=== PATIENT | female | born 1985 | race American Indian/Alaskan Native ===

== ENCOUNTER 2021-10-25 13:49 | Emergency (ER) | payer MEDICARE ==
[2021-10-25 15:06] VITALS: BP 161/98
--- NOTE | 2021-10-25 15:19 | Emergency Department Report ---
ED General Adult HPI - General Chief complaint: Medical Clearance Stated complaint: MEDICAL CLEARANCE Time Seen by Provider: 10/25/21 15:01 Source: patient Mode of arrival: Ambulatory Limitations: No Limitations - History of Present Illness Initial comments: The patient is a 36-year-old female who reports that she is not , reports that she has not delivered her given in the past 6 weeks, who was referred to the emergency room by an outside facility for medical clearance after unintentional marijuana smoke exposure. The patient denies all complaints at this time. She is not homicidal or suicidal. She is asking to be discharged. On review of systems, she does have chronic right lower extremity pain from an accident a few years ago, but the patient indicates she is not present in the emergency room for evaluation of this -: This afternoon Improves with: none Worsens with: none Associated Symptoms: denies other symptoms - Related Data Allergies Allergy/AdvReac Type Severity Reaction Status Date / Time erythromycin base Allergy Anaphylaxis Verified 10/25/21 14:03 [From Erythrocin] fluconazole [From Diflucan] Allergy Rash Verified 10/25/21 14:04 haloperidol [From Haldol] Allergy Rash Verified 10/25/21 14:04 ziprasidone [From Geodon] Allergy Rash Verified 10/25/21 14:04 ED Review of Systems ROS: Stated complaint: MEDICAL CLEARANCE Other details as noted in HPI Comment: All other systems reviewed and negative Musculoskeletal: arthralgia, other (Chronic right lower extremity pain and arthritis) ED Past Medical Hx - Past Medical History Hx Arthritis: No (Diclofenac) Hx Seizures: Yes (Keppra, Trileptal) Hx Psychiatric Treatment: Yes (takes seroquel, celexa) Additional medical history: neuropathy takes Gabapentin - Surgical History Past Surgical History?: Yes Additional Surgical History: ectopic , carpal tunnel - Social History Smoking Status: Current Some Day Smoker ED Physical Exam - General Limitations: No Limitations General appearance: alert, in no apparent distress, obese - Head Head exam: Present: atraumatic, normocephalic - Eye Eye exam: Present: normal appearance, EOMI. Absent: nystagmus - ENT ENT exam: Present: normal exam, normal orophraynx, mucous membranes moist, normal external ear exam - Neck Neck exam: Present: normal inspection, full ROM. Absent: tenderness, meningismus - Respiratory Respiratory exam: Present: normal lung sounds bilaterally. Absent: respiratory distress, wheezes, rales, rhonchi, stridor, decreased breath sounds - Cardiovascular Cardiovascular Exam: Present: regular rate, normal rhythm, normal heart sounds. Absent: bradycardia, tachycardia, irregular rhythm, systolic murmur, diastolic murmur, rubs, gallop - GI/Abdominal GI/Abdominal exam: Present: soft. Absent: distended, tenderness, guarding, rebound, rigid, pulsatile mass - Extremities Exam Extremities exam: Present: normal inspection, full ROM, other (2+ pulses noted in the bilateral upper extremities. There is no long bony tenderness. The pelvis is stable. The muscular compartments are soft). Absent: pedal edema, calf tenderness - Back Exam Back exam: Present: normal inspection. Absent: tenderness, CVA tenderness (R), CVA tenderness (L), paraspinal tenderness, vertebral tenderness - Neurological Exam Neurological exam: Present: alert, oriented X3, normal gait, other (No facial droop. Tongue midline. Extraocular movements intact bilaterally. Facial sensation intact to light touch in V1, V2, V3 distribution bilaterally. 5 and a 5 strength in 4 extremities. Sensation intact to light touch in 4 extr emities.). Absent: motor sensory deficit - Psychiatric Psychiatric exam: Present: normal affect, normal mood. Absent: homicidal ideation, suicidal ideation - Skin Skin exam: Present: warm, dry, intact, normal color. Absent: rash ED Course Vital Signs 10/25/21 10/25/21 10/25/21 14:02 14:34 14:37 Temperature 98.9 F Pulse Rate 98 H Respiratory 16 14 13 Rate Blood Pressure 156/84 O2 Sat by Pulse 100 100 Oximetry O2 Sat by Pulse Oximetry [ Digit-Finger] 10/25/21 10/25/21 10/25/21 14:45 15:01 15:27 Temperature Pulse Rate 95 H Respiratory 14 11 L Rate Blood Pressure 152/90 161/98 O2 Sat by Pulse 99 100 Oximetry O2 Sat by Pulse 99 Oximetry [ Digit-Finger] 10/25/21 15:48 Temperature 98.9 F Pulse Rate 98 H Respiratory 16 Rate Blood Pressure O2 Sat by Pulse 100 Oximetry O2 Sat by Pulse Oximetry [ Digit-Finger] - Pulse Oximetry Interpretation Digit-Finger Initial Pulse Oximetry Readin O2 Sat by Pulse Oximetry: 99 Actions Taken: none ED Medical Decision Making - Lab Data Vital Signs 10/25/21 10/25/21 10/25/21 14:02 14:34 14:37 Temperature 98.9 F Pulse Rate 98 H Respiratory 16 14 13 Rate Blood Pressure 156/84 O2 Sat by Pulse 100 100 Oximetry 10/25/21 10/25/21 14:45 15:01 Temperature Pulse Rate 95 H Respiratory 14 11 L Rate Blood Pressure 152/90 161/98 O2 Sat by Pulse 99 100 Oximetry - Medical Decision Making Differential diagnosis, include but not limited to: Encounter for medical screening exam, encounter for behavioral health screening exam Assessment and plan: 36-year-old female, who is clinically sober with a GCS of 15, presenting to the ER today with request for medical clearance. She was had an outside program, and reports secondhand exposure to marijuana. She is not homicidal or suicidal, she is not having hallucinations and she exhibits decision-making capacity. She does not meet criteria for 1013 hold or involuntary hold or confinement. She denies overdose. Review of systems is essentially negative for all findings, except chronic right lower extremity pain secondary to accident, but she is not interested in pain medication for this at this time. She reports that she has elevated blood pressure because she is annoyed and agitated that she had to come to the emergency room for clearance. Nevertheless, the patient does not appear to have an emergent medical or psychiatric condition at this time, she may be discharged to follow-up as an outpatient for her elevated blood pressure and body mass index of 44 Critical care attestation.: If time is entered above; I have spent that time in minutes in the direct care of this critically ill patient, excluding procedure time. ED Disposition Clinical Impression: Encounter for medical screening examination, Encounter for behavioral health screening, Elevated blood pressure reading, Body mass index 40.0-44.9, adult Disposition: 01 HOME / SELF CARE / HOMELESS Is pt being admited?: No Does the pt Need Aspirin: No Condition: Good Additional Instructions: The patient was not found to have an emergent medical or psychiatric condition at this time which would preclude discharge from the emergency room. The patient may return to her program, and continue current outpatient therapy and medications. Recommend follow-up with her primary care doctor within the next 4 to 6 weeks for elevated blood pressure, and body mass index of 44.1. The patient may take [id number] Tylenol or ibuprofen as needed for physical pain. Please return to the emergency room right away with new pain, worsened pain, migration of pain, projectile vomiting, change in mental status, confusion, inability tolerate liquid feeds, new, worsened or different symptoms not present on the initial emergency room evaluation Referrals: [facility] [Provider Group] - 3-5 Days [facility] [Outside] - 3-5 Days [facility] [Outside] - 3-5 Days
== END 2021-10-25 15:48 | disposition home or self-care (01) ==
LOC: ED 13:49
DX: Z13.30 Encounter for screening examination for mental health and behavioral disorders, unspecified (principal); M79.604 Pain in right leg; Z68.41 Body mass index [BMI] 40.0-44.9, adult; R03.0 Elevated blood-pressure reading, without diagnosis of hypertension; M19.90 Unspecified osteoarthritis, unspecified site; G40.909 Epilepsy, unspecified, not intractable, without status epilepticus; F17.200 Nicotine dependence, unspecified, uncomplicated; Z88.6 Allergy status to analgesic agent; Z88.1 Allergy status to other antibiotic agents; Z91.09 Other allergy status, other than to drugs and biological substances
CPT/HCPCS: 99283

== ENCOUNTER 2022-04-25 16:53 | Emergency (ER) | payer MEDICARE ==
[2022-04-26] MEDS ORDERED: KETOROLAC 10 MG TAB PO ONE (08:23)
[2022-04-26] MEDS ORDERED: ACETAMINOPHEN W/CODEINE 300-30 MG TAB PO ONE (08:23)
--- NOTE | 2022-04-26 08:52 | Emergency Department Report ---
ED General Adult HPI - General Stated complaint: SEIZURE/DIZZINESS Time Seen by Provider: 04/26/22 08:15 - History of Present Illness Initial comments: 36-year-old black female with a past medical history of hypertension and seizure disorder presents to the emergency department for evaluation of generalized body aches. She states that she ran out of her Keppra 5 days ago, had several seizures on Tuesday and Tuesday, then restarted her Keppra on Tuesday evening. She states that she has not had any seizures since Tuesday morning but has had some generalized body aches since then secondary to falling down. She denies head injury, neck pain, or headache. MD Complaint: Body aches -: Gradual Radiation: non-radiation Severity scale (0 -10): 7 Quality: aching Consistency: constant Worsens with: movement Associated Symptoms: denies: confusion, chest pain, cough, diaphoresis, fever/chills, headaches, loss of appetite, malaise, nausea/vomiting, rash, seizure, shortness of breath, syncope, weakness Treatments Prior to Arrival: none - Related Data Allergies Allergy/AdvReac Type Severity Reaction Status Date / Time erythromycin base Allergy Anaphylaxis Verified 10/25/21 14:03 [From Erythrocin] fluconazole [From Diflucan] Allergy Rash Verified 10/25/21 14:04 haloperidol [From Haldol] Allergy Rash Verified 10/25/21 14:04 ziprasidone [From Geodon] Allergy Rash Verified 10/25/21 14:04 ED Review of Systems ROS: Stated complaint: SEIZURE/DIZZINESS Other details as noted in HPI Comment: All other systems reviewed and negative Constitutional: denies: chills, fever Eyes: denies: vision change ENT: denies: congestion Respiratory: denies: shortness of breath, SOB with exertion, wheezing Cardiovascular: denies: chest pain, palpitations Gastrointestinal: denies: abdominal pain, nausea, vomiting Genitourinary: denies: urgency, dysuria, frequency, hematuria, discharge Musculoskeletal: back pain, myalgia Skin: denies: rash, lesions Neurological: denies: headache, weakness ED Past Medical Hx - Past Medical History Hx Arthritis: No (Diclofenac) Hx Seizures: Yes (Keppra, Trileptal) Hx Psychiatric Treatment: Yes (takes seroquel, celexa) Additional medical history: neuropathy takes Gabapentin - Surgical History Additional Surgical History: ectopic , carpal tunnel - Social History Smoking Status: Current Some Day Smoker ED Physical Exam - General General appearance: alert, in no apparent distress - Head Head exam: Present: atraumatic, normocephalic - Eye Eye exam: Present: normal appearance. Absent: conjunctival injection - ENT ENT exam: Present: normal exam - Neck Neck exam: Present: normal inspection, full ROM. Absent: tenderness - Respiratory Respiratory exam: Present: normal lung sounds bilaterally. Absent: respiratory distress, wheezes, rales, rhonchi, stridor, chest wall tenderness - Cardiovascular Cardiovascular Exam: Present: regular rate - GI/Abdominal GI/Abdominal exam: Present: soft, normal bowel sounds. Absent: distended, tenderness, guarding, rebound, rigid - Extremities Exam Extremities exam: Present: normal inspection, normal capillary refill. Absent: calf tenderness - Back Exam Back exam: Present: normal inspection. Absent: CVA tenderness (R), CVA tenderness (L), vertebral tenderness - Neurological Exam Neurological exam: Present: alert, oriented X3, normal gait, reflexes normal. Absent: motor sensory deficit - Psychiatric Psychiatric exam: Present: normal affect, normal mood - Skin Skin exam: Present: warm, dry, intact, normal color ED Course Vital Signs 04/26/22 08:50 Temperature 96.8 F L Pulse Rate 84 Respiratory 16 Rate Blood Pressure 139/78 [Left] O2 Sat by Pulse 100 Oximetry ED Medical Decision Making - Medical Decision Making 36-year-old black female with a past medical history of hypertension and seizure disorder presents to the emergency department for evaluation of generalized body aches. She states that she ran out of her Keppra 5 days ago, had several seizures on Tuesday and Tuesday, then restarted her Keppra on Tuesday evening. She states that she has not had any seizures since Tuesday morning but has had some generalized body aches since then secondary to falling down. She denies head injury, neck pain, or headache. Physical exam unremarkable. No active seizures noted. Patient requesting a note to be out of work for 2 days. Patient discharged home to continue Keflex, be out of work 2 days, and follow-up with her neurologist or primary care provider. She is advised to return to the emergency department as needed. She verbalizes understanding of and agreement with plan of care. Critical care attestation.: If time is entered above; I have spent that time in minutes in the direct care of this critically ill patient, excluding procedure time. ED Disposition Clinical Impression: Myalgia Disposition: 01 HOME / SELF CARE / HOMELESS Is pt being admited?: No Does the pt Need Aspirin: No Condition: Stable Instructions: Musculoskeletal Pain Additional Instructions: Follow-up with your primary care provider for further evaluation and management. Return to the emergency department as needed. Referrals: BROOKE CONNELL MD [Staff Physician] - 3-5 Days PHAN AVILA MD [Staff Physician] - 3-5 Days ESDRAS MOFFETT MD [Staff Physician] - 3-5 Days Forms: Work/School Release Form(ED) Time of Disposition: 08:52
[2022-04-26 09:00] VITALS: BP 139/78
== END 2022-04-26 09:16 | disposition home or self-care (01) ==
LOC: ED 16:53
DX: M79.10 Myalgia, unspecified site (principal); Z91.09 Other allergy status, other than to drugs and biological substances
CPT/HCPCS: 99282

== ENCOUNTER 2022-04-25 23:11 | Emergency (ER) | payer MEDICARE ==
[2022-04-26 02:20] VITALS: BP 150/99
== END 2022-04-26 19:00 | disposition left against medical advice (07) ==
LOC: ED 23:11
DX: R56.9 Unspecified convulsions (principal); Z53.21 Procedure and treatment not carried out due to patient leaving prior to being seen by health care provider

== ENCOUNTER 2022-05-01 02:03 | Emergency (ER) | payer MEDICARE ==
[2022-05-01] MEDS ORDERED: SODIUM CHLORIDE 0.9% 1000 ML 1,000 ML IV ONE ×2 (09:22→15:52)
[2022-05-01 13:01] LABS: Color,Urine Yellow (Yellow)
[2022-05-01 13:07] LABS: Bacteria,Urine 1+ /HPF (Negative); Mucus,Urine FEW /HPF
[2022-05-01 13:14] LABS: Amphetamine Screen,Urine Negative; Cannabinoid Screen,Urine Negative; Methadone Screen,Urine Negative; Opiate Screen,Urine Negative
[2022-05-01 13:25] LABS: HCG Qualitative,Urine Negative (Negative)
[2022-05-01 13:38] LABS: Benzodiazepines Screen,Urine Positive; Cocaine Screen,Urine Positive
[2022-05-01 14:28] LABS: Hematocrit 39.9 % (30.3-42.9); Hemoglobin 13.2 gm/dl (10.1-14.3); Mean Corpuscular HGB Conc 33 % (30-34); Mean Corpuscular Volume 79 fl (79-97); Platelet Count 188 K/mm3 (140-440); Red Blood Count 5.06 M/mm3 (3.65-5.03)
[2022-05-01 14:39] LABS: INR 0.99 (0.87-1.13)
--- NOTE | 2022-05-01 14:45 | Emergency Department Report ---
ED General Adult HPI - General Chief complaint: Pain General Stated complaint: KIDNEY SHUTTING DOWN Source: patient Mode of arrival: Ambulatory Limitations: No Limitations - History of Present Illness Initial comments: 36-year-old female presents to the ED with complaint of "my body feel cramp all over". Patient states that she was recently discharged from [facility] x1 day ago for overdose. She states she took 180 metformin tablet. Patient states that she has been discharge she cannot get rid of this feeling she have all over her body. Patient denies any suicidal homicidal ideation. Patient is alert and oriented x3. No acute distress noted. No ill appearance noted. - Related Data Allergies Allergy/AdvReac Type Severity Reaction Status Date / Time erythromycin base Allergy Anaphylaxis Verified 10/25/21 14:03 [From Erythrocin] fluconazole [From Diflucan] Allergy Rash Verified 10/25/21 14:04 haloperidol [From Haldol] Allergy Rash Verified 10/25/21 14:04 ziprasidone [From Geodon] Allergy Rash Verified 10/25/21 14:04 ED Review of Systems ROS: Stated complaint: KIDNEY SHUTTING DOWN Other details as noted in HPI Constitutional: denies: chills, fever Eyes: denies: eye pain, eye discharge, vision change ENT: denies: ear pain, throat pain Respiratory: denies: cough, shortness of breath, wheezing Cardiovascular: denies: chest pain, palpitations Endocrine: no symptoms reported Gastrointestinal: denies: abdominal pain, nausea, diarrhea Genitourinary: denies: urgency, dysuria, discharge Musculoskeletal: denies: back pain, joint swelling, arthralgia Skin: denies: rash, lesions Neurological: denies: headache, weakness, paresthesias Psychiatric: denies: anxiety, depression Hematological/Lymphatic: denies: easy bleeding, easy bruising ED Past Medical Hx - Past Medical History Previous Medical History?: Yes Hx Diabetes: Yes (DMII) Hx Arthritis: No (Diclofenac) Hx Seizures: Yes (Keppra, Trileptal) Hx Psychiatric Treatment: Yes (MDD, BIPOLAR, SCHIZOPHRENIA) Hx Asthma: Yes Additional medical history: neuropathy takes Gabapentin - Surgical History Past Surgical History?: Yes Additional Surgical History: ectopic , carpal tunnel - Social History Smoking Status: Unknown if ever smoked Substance Use Type: None ED Physical Exam - General Limitations: No Limitations General appearance: alert, in no apparent distress - Head Head exam: Present: atraumatic, normocephalic - Eye Eye exam: Present: normal appearance - ENT ENT exam: Present: mucous membranes moist - Neck Neck exam: Present: normal inspection - Respiratory Respiratory exam: Present: normal lung sounds bilaterally. Absent: respiratory distress - Cardiovascular Cardiovascular Exam: Present: regular rate, normal rhythm. Absent: systolic murmur, diastolic murmur, rubs, gallop - GI/Abdominal GI/Abdominal exam: Present: soft, normal bowel sounds - Extremities Exam Extremities exam: Present: normal inspection - Back Exam Back exam: Present: normal inspection - Neurological Exam Neurological exam: Present: alert, oriented X3 - Psychiatric Psychiatric exam: Present: normal affect, normal mood - Skin Skin exam: Present: warm, dry, intact, normal color. Absent: rash ED Course Vital Signs 05/01/22 05/01/22 04:29 14:52 Temperature 98.1 F 98.8 F Pulse Rate 107 H 96 H Respiratory 18 18 Rate Blood Pressure 133/96 Blood Pressure 161/84 [Right] O2 Sat by Pulse 100 100 Oximetry ED Medical Decision Making - Lab Data Result diagrams: 05/01/22 13:54 05/01/22 13:53 - Medical Decision Making 36-year-old female presents to the ED with complaint of "my body feel cramp all over". Patient states that she was recently discharged from [facility] x1 day ago for overdose. She states she took 180 metformin tablet. Patient states that she has been discharge she cannot get rid of this feeling she have all over her body. Patient denies any suicidal homicidal ideation. Patient is alert and oriented x3. No acute distress noted. No ill appearance noted. Physical examination patient start crying . But would not say why she is crying. Physical examination unremarkable. After talking to the mental health worker patient explain that she is between housing as need to come to hospital . States that she drank a drink . Patient urine drug screen showed b enzos and cocaine use. Patient denies use. Patient has a history of schizophrenia and bipolar manic disorder.Patient was given Normal saline 1L.and 500cc. Rechecked the patient is resting quietly , comfortable and feeling better. I discussed the results of diagnostic study, my clinical impression and the plan for further treatment with the patient. Patient agrees with plan and discharge at this present time. All question addressed. I have given the patient instruction regarding a diagnosis ,expectation ,follow- up and return precaution. I explained to the patient that emergent condition may arise and to return to the ED for new worsen and any new persisting condition. I have explained the importance of following up with the primary care physician or referral physician listed below has instructed. The patient verbalized understanding of discharge instruction. Abnormal Lab Results 05/01/22 05/01/22 05/01/22 08:55 08:55 13:53 WBC RBC Hgb Hct MCV MCH MCHC RDW Plt Count PT 14.2 INR 0.99 Sodium Potassium Chloride Carbon Dioxide Anion Gap BUN Creatinine Estimated GFR BUN/Creatinine Ratio Glucose Osmolality Lactic Acid Calcium Total Bilirubin AST ALT Alkaline Phosphatase Total Protein Albumin Albumin/Globulin Ratio Urine Color Yellow Urine Turbidity Slightly-cloudy Specific [place] (Man) 1.022 Ur Protein (Man) Negative Ur Ketones (Man) Negative Ur Nitrite (Man) Negative Urine Bilirubin (Man) Negative Urine Ictotest Not Reportable Leukocyte Esterase (Man) Negative Urine WBC (Auto) 4.0 Urine RBC (Auto) 2.0 U Epithel Cells (Auto) 15.0 H Urine Bacteria (Auto) 1+ Urine RBC (Manual) Negative Urine Mucus Few Urine HCG, Qual Negative Urine Opiates Screen Negative Urine Methadone Screen Negative Ur Barbiturates Screen Negative Ur Phencyclidine Scrn Negative Ur Amphetamines Screen Negative Phenobarbital U Benzodiazepines Scrn Positive Urine Cocaine Screen Positive U Marijuana (THC) Screen Negative Drugs of Abuse Note Disclamer 05/01/22 05/01/22 05/01/22 13:53 13:53 13:53 WBC RBC Hgb Hct MCV MCH MCHC RDW Plt Count PT INR Sodium 133 L Potassium 4.6 Chloride 100.1 Carbon Dioxide 17 L Anion Gap 21 BUN 11 Creatinine 0.6 Estimated GFR > 60 BUN/Creatinine Ratio 18 Glucose 226 H Osmolality 297 Lactic Acid 2.60 H* Calcium 9.3 Total Bilirubin 0.50 AST 15 ALT < 5 L Alkaline Phosphatase 66 Total Protein 7.6 Albumin 4.3 Albumin/Globulin Ratio 1.3 Urine Color Urine Turbidity Specific [place] (Man) Ur Protein (Man) Ur Ketones (Man) Ur Nitrite (Man) Urine Bilirubin (Man) Urine Ictotest Leukocyte Esterase (Man) Urine WBC (Auto) Urine RBC (Auto) U Epithel Cells (Auto) Urine Bacteria (Auto) Urine RBC (Manual) Urine Mucus Urine HCG, Qual Urine Opiates Screen Urine Methadone Screen Ur Barbiturates Screen Ur Phencyclidine Scrn Ur Amphetamines Screen Phenobarbital < 2.4 L U Benzodiazepines Scrn Urine Cocaine Screen U Marijuana (THC) Screen Drugs of Abuse Note 05/01/22 13:54 WBC 9.4 RBC 5.06 H Hgb 13.2 Hct 39.9 MCV 79 MCH 26 L MCHC 33 RDW 16.0 H Plt Count 188 PT INR Sodium Potassium Chloride Carbon Dioxide Anion Gap BUN Creatinine Estimated GFR BUN/Creatinine Ratio Glucose Osmolality Lactic Acid Calcium Total Bilirubin AST ALT Alkaline Phosphatase Total Protein Albumin Albumin/Globulin Ratio Urine Color Urine Turbidity Specific [place] (Man) Ur Protein (Man) Ur Ketones (Man) Ur Nitrite (Man) Urine Bilirubin (Man) Urine Ictotest Leukocyte Esterase (Man) Urine WBC (Auto) Urine RBC (Auto) U Epithel Cells (Auto) Urine Bacteria (Auto) Urine RBC (Manual) Urine Mucus Urine HCG, Qual Urine Opiates Screen Urine Methadone Screen Ur Barbiturates Screen Ur Phencyclidine Scrn Ur Amphetamines Screen Phenobarbital U Benzodiazepines Scrn Urine Cocaine Screen U Marijuana (THC) Screen Drugs of Abuse Note Critical care attestation.: If time is entered above; I have spent that time in minutes in the direct care of this critically ill patient, excluding procedure time. ED Disposition Clinical Impression: Myalgia Disposition: 01 HOME / SELF CARE / HOMELESS Is pt being admited?: No Does the pt Need Aspirin: No Condition: Stable Additional Instructions: OUTPATIENT MENTAL HEALTH RESOURCES [facility], [facility] Eric Bauman MD: [address] [place] [address] [place] [address] [place] [facility]: [employer] [address] [place] [address] [place] [address] [phone] [facility]: [facility] Healthcare: [address] [facility] [address] [facility] [place] [address] [facility] [address] [facility]: Phuc Cuevas MD: [address] [facility] [address] [facility] [address] [facility]: [address] [place], [place] [address] [place] [address] [phone] [place] CRISIS AND ACCESS LINE: Referrals: AYAAN FITZGERALD NP [Primary Care Provider] - 3-5 Days Forms: Work/School Release Form(ED)
[2022-05-01 14:48] LABS: Albumin 4.3 g/dL (3.9-5); Blood Urea Nitrogen 11 mg/dL (7-17); Calcium 9.3 mg/dL (8.4-10.2); Hemolysis Index 30
[2022-05-01 15:03] LABS: Alanine Aminotransferase < 5 units/L (7-56); BUN/Creatinine Ratio 18
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
[2022-05-01 19:08] VITALS: BP 148/96
== END 2022-05-01 19:06 | disposition home or self-care (01) ==
LOC: ED 02:03
DX: M79.10 Myalgia, unspecified site (principal); I10 Essential (primary) hypertension; J45.909 Unspecified asthma, uncomplicated; Z88.1 Allergy status to other antibiotic agents; Z88.8 Allergy status to other drugs, medicaments and biological substances
CPT/HCPCS: 36415; 80053; 80184; 80307; 81001; 81025; 82140; 83930; 85027; 85610; 96360; 96361; 99283; J7030